=== PATIENT | female | born 1985 | race Caucasian/White ===

== ENCOUNTER 2024-05-08 15:10 | Outpatient (CLI) | payer OTHER, SELFPAY ==
--- NOTE | ~2024-05-08 | US_ITS ---
EXAMINATION: US pelvic complete w TV INDICATION: Irregular bleeding Comparison:No prior studies for comparison. TECHNIQUE: Multiple transabdominal and endovaginal sonographic images of the pelvis performed. FINDINGS: The uterus measures 7 x 4.5 x 1.6 cm. There is a small cyst of the uterus measuring 5 mm, l ikely of no clinical significance. The endometrial complex measures 3 mm. The right ovary measures 1.9 x 1 x 1.3 cm and the left ovary measures 2.2 x 1.3 x 1.9 cm. There are small follicles in each ovary. Normal doppler signal in both ovaries. There is no free fluid in the pelvis. There are no abnormal masses seen on either side. IMPRESSION: 1. Unremarkable pelvic ultrasound. Reviewed, dictated and finalized at location B. D NURSE
== END 2024-05-08 15:11 | disposition home or self-care (01) ==
LOC: MICIMG 15:12
PROVIDERS: PCP Obstetrics & Gynecology; Visit Provider Obstetrics & Gynecology
DX: N92.6 Irregular menstruation, unspecified (principal)
CPT/HCPCS: 76830; 76856